=== PATIENT | female | born 1935 | race Caucasian/White ===

== ENCOUNTER → 2017-10-05 | Outpatient (CLI) | payer MEDICARE ==
[~2017-10-05] MED LIST: AMLO5 PO; ASCO1ER PO; ASPI81EC PO; ATEN50 PO; Bactrim Ds Tab1 EACH PO; Benicar PO; CENTRUM SILVER1 EAC2 PO; ERGO400 PO; HYDSUL200 PO; LEVSOD50 PO; LOSA50 PO; LOSHYD PO; METO10 PO; MULVITMINF PO; OLME20 PO; OLME20-12. PO; OXYACE5T PO; OXYM.05NI; POLY17UD PO; PROBIOTIC1 EAC1 PO; Pyridium200 MG PO; TRAM50 PO; VITAMIN D31000 UNIT PO; Vitamin C100 M1 PO; Zofran Odt4 MG SL
== END | disposition home or self-care (01) ==
LOC: LAB SHORT 10:09 → PLD 10:09
DX: D48.5 Neoplasm of uncertain behavior of skin (principal)
CPT/HCPCS: 88305

== ENCOUNTER → 2023-06-02 | Outpatient (CLI) | payer MEDICARE | LOC: PLD 08:18 → LAB SHORT 08:18 | DX: D48.5 Neoplasm of uncertain behavior of skin (principal) | CPT/HCPCS: 88305 ==

== ENCOUNTER 2025-07-01 11:30 | Emergency (ER) | payer MEDICARE ==
[~2025-07-01] VITALS: Ht 162.6 cm; Wt 93.0 kg
[2025-07-01 14:45] VITALS: BP 169/92
== END 2025-07-01 15:55 | disposition home or self-care (01) ==
LOC: ER 11:30
DX: S09.90XA Unspecified injury of head, initial encounter (principal); R60.0 Localized edema; M25.562 Pain in left knee; M25.561 Pain in right knee; Z59.89 Other problems related to housing and economic circumstances; W18.30XA Fall on same level, unspecified, initial encounter; Z88.0 Allergy status to penicillin; Z88.8 Allergy status to other drugs, medicaments and biological substances
CPT/HCPCS: 70450; 72125; 73502; 99284-25